=== PATIENT | male | born 1960 | race Caucasian/White ===

== ENCOUNTER 2016-08-21 11:27 | Inpatient (IN) | payer OTHER ==
[~2016-08-21] VITALS: Ht 177.8 cm; Wt 60.5 kg
--- NOTE | ~2016-08-21 | HC ---
[facility] [place] [address] CONSULTATION Name: BRENT MARTIN Room #: 511-P [facility] IN M.R.#: [id number] Admission: 08/21/16 Attend Phys: Feliz Fernandez MD Discharge: Date of : 58 Report #: [id number] THIS REPORT FOR: //name// CC: Feliz Davis NEUROBEHAVIORAL STATUS EXAM DATE OF CONSULTATION: 09/07/2016. AGE: 56. ATTENDING PHYSICIAN: Feliz Fernandez M.D. POLICY ADVISOR: Santiago Ocampo, PhD. CLINICAL PRESENTATION: The patient is a 56-year-old male admitted to the rehabilitation unit for a comprehensive inpatient rehabilitation program to improve functional mobility, activities of daily living and self-care and mental status secondary to an encephalopathy with peripheral neuropathy and a pelvic fracture. The patient has a long standing alcohol abuse disorder. He has continued to consume alcohol prior to his current admission. His past medical history includes liver failure and treatment for depression using venlafaxine and gabapentin. A complete description of his medical condition and history along with medications can be found in his medical record. Neuropsychological consultation was requested to provide assistance in the assessment of cognitive and emotional status and to provide recommendations and services. Prior to this most recent admission, he was living with his parents in their home. He fell and sustained a fracture to his pelvis, which resulted in his need for hospitalization. The patient reported that he is a high school graduate and attended [employer] However, he is an unreliable historian. 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 The patient was confused and disoriented during the interview and accuracy of historic information is uncertain. TECHNIQUES UTILIZED: Clinical interview, review of medical records, staff consultation and behavioral observation, mini mental status exam 2 brief version. EXAMINATION FINDINGS: The patient was alert and cooperative with the assessment. However, he was unable to describe the reason for his hospitalization. He reported having pain in his groin and testicles along with his lower back. The patient reports his problems to include difficulty with sleep and appetite. His performance on the MMSE 2 brief version was 9 of 16, [facility] [address] [place] [address] CONSULTATION Name: BRENT MARTIN Room #: 511-P ADM IN M.R.#: [id number] Admission: 08/21/16 Attend Phys: Feliz Fernandez MD Discharge: Date of : 58 Report #: [id number] which is extremely low. He was 3/3 for initial registration. The patient was oriented to time with a raw score 4/5. Orientation to date and orientation to place was impaired. He relied on the orientation board to identify current location. He was 0/3 for immediate recall of 3 items after a brief time delay and distraction. DIAGNOSTIC IMPRESSION: Major neurocognitive disorder (dementia), possibly due to alcohol abuse, without behavior disorder, extent to be determined, severe at this time. Intermittent delirium secondary to liver failure. RECOMMENDATIONS: The patient will require 24-hour care that includes assistance in the management of medication, nutrition and finances. Alcohol should be kept from the patient. Addictive substances should be used with caution. Decreased insight, intermittent delirium and severe neurocognitive deficits places him as a very high safety risk. Thank you very much for allowing me to provide the consultation on this patient. <ELECTRONICALLY SIGNED> By: Santiago Ocampo, PhD 09/12/16 [id number] Santiago Ocampo, PhD /nt
[~2016-08-21 11:27] MED LIST: ASPIR 8181 M1 PO; BENZONATATE200 MG PO; CYMBALTA30 MG PO; DUEXIS 800-26.1 EACH PO; DULOXETINE HCL60 MG PO; GLUCOSAMINE HC500 MG PO; IRON325 M1 PO; LACTULOSE20 GM/30 M PO; LASIX 40 MG TAB40 M2 PO; LIPITOR 20 MG T20 M1 PO; LOPERAMIDE 2 MG2 M1 PO; MUCINEX TA600 MG/TA2 PO; NATURE'S TEARS15 M1 OPHTHALMIC; PERCOCET PO; PRILOSEC 20 MG20 MG PO; ROXICODONE5 M2 PO; SPIRONOLACTONE25 MG PO; THERATRUM COMP1 EAC2 PO; TRAMADOL 50 MG50 MG PO; TRAZODONE HCL50 MG PO; TUMS PO; XIFAXAN550 M1 PO; [UNRECOGNIZED DRUG - MIXTURE] PO
[2016-08-21 18:30] VITALS: BP 125/85
[2016-08-22 05:06] VITALS: BP 114/73
[2016-08-22 05:12] LABS: MCV 90.2 fL (80.0-100.0)
[2016-08-22 05:13] LABS: HEMATOCRIT 26.1 % (42.0-52.0); HEMOGLOBIN 8.3 gm/dL (14.0-18.0); MCH 28.8 pg (26.0-34.0); MCHC 31.9 g/dL (28.0-37.0); RBC 2.89 mil/uL (4.50-6.00); RDW 19.8 % (10.5-14.5)
[2016-08-22 05:40] LABS: WBC 1.7 thou/uL (4.0-11.0)
[2016-08-22 06:06] LABS: ALBUMIN 2.3 g/dL (3.4-5.0); CALCIUM 7.7 mg/dL (8.5-10.1); CREATININE 0.7 mg/dL (0.7-1.3); DIRECT BILIRUBIN 1.1 mg/dL (<0.1-0.3); TOTAL BILIRUBIN 2.6 mg/dL (<0.1-1.0); TOTAL PROTEIN 5.4 g/dL (6.4-8.2)
[2016-08-22 08:48] VITALS: BP 113/64
[2016-08-22 16:07] VITALS: BP 117/76
[2016-08-23 03:14] VITALS: BP 112/70
[2016-08-23 05:34] LABS: MCV 88.4 fL (80.0-100.0)
[2016-08-23 05:37] LABS: HEMOGLOBIN 8.4 gm/dL (14.0-18.0); MCH 29.6 pg (26.0-34.0); MCHC 33.5 g/dL (28.0-37.0); PLATELET COUNT 103 thou/uL (150-400); RBC 2.83 mil/uL (4.50-6.00)
[2016-08-23 05:45] LABS: MANUAL DIFF YES; WBC 1.8 thou/uL (4.0-11.0)
[2016-08-23 07:25] LABS: ANISOCYTOSIS 1+; PLATELET ESTIMATE NORMAL; TOTAL CELL COUNT 100
[2016-08-23 09:14] VITALS: BP 112/71
[2016-08-23 15:30] VITALS: BP 108/74
[2016-08-24 06:35] VITALS: BP 108/69
[2016-08-24 15:39] VITALS: BP 117/78
[2016-08-25 04:00] VITALS: BP 105/70
[2016-08-25 07:20] LABS: HEMATOCRIT 26.8 % (42.0-52.0); HEMOGLOBIN 8.7 gm/dL (14.0-18.0); MCHC 32.2 g/dL (28.0-37.0); MCV 90.1 fL (80.0-100.0); PLATELET COUNT 121 thou/uL (150-400); RBC 2.98 mil/uL (4.50-6.00); RDW 20.3 % (10.5-14.5)
[2016-08-25 07:27] LABS: MANUAL DIFF YES
[2016-08-25 07:49] LABS: CALCIUM 8.1 mg/dL (8.5-10.1); CREATININE 0.7 mg/dL (0.7-1.3); MAGNESIUM 1.8 mg/dL (1.8-2.4); POTASSIUM 4.5 mmol/L (3.5-5.1)
[2016-08-25 09:24] LABS: ANISOCYTOSIS 2+; NUCLEATED RBCS 1 /100WBC; POLYCHROMASIA OCCASIONAL; TOTAL CELL COUNT 100
[2016-08-25 09:25] LABS: OVALOCYTES FEW
[2016-08-25 16:06] VITALS: BP 124/72
[2016-08-26 03:58] VITALS: BP 104/68
[2016-08-26 04:37] LABS: HEMOGLOBIN 8.9 gm/dL (14.0-18.0)
[2016-08-26 04:41] LABS: HEMATOCRIT 27.1 % (42.0-52.0); MCV 87.7 fL (80.0-100.0); PLATELET COUNT 132 thou/uL (150-400); RBC 3.08 mil/uL (4.50-6.00); RDW 19.9 % (10.5-14.5); WBC 2.6 thou/uL (4.0-11.0)
[2016-08-26 04:44] LABS: MANUAL DIFF YES
[2016-08-26 04:56] LABS: ALBUMIN 2.5 g/dL (3.4-5.0); CALCIUM 7.9 mg/dL (8.5-10.1); CREATININE 0.7 mg/dL (0.7-1.3); POTASSIUM 4.4 mmol/L (3.5-5.1); TOTAL BILIRUBIN 2.6 mg/dL (<0.1-1.0)
[2016-08-26 05:17] LABS: ABSOLUTE NEUTROPHILS 1.6 thou/uL (1.4-8.2); ANISOCYTOSIS 2+; LARGE PLATELETS FEW; POLYCHROMASIA 1+; TOTAL CELL COUNT 100
[2016-08-26 05:19] LABS: SCHISTOCYTES RARE
[2016-08-26 15:30] VITALS: BP 133/89
[2016-08-27 04:25] VITALS: BP 136/82
[2016-08-27 09:31] LABS: HEMATOCRIT 30.5 % (42.0-52.0); HEMOGLOBIN 9.9 gm/dL (14.0-18.0); MCH 28.9 pg (26.0-34.0); MCHC 32.6 g/dL (28.0-37.0); MCV 88.9 fL (80.0-100.0); PLATELET COUNT 168 thou/uL (150-400); RBC 3.44 mil/uL (4.50-6.00); WBC 2.7 thou/uL (4.0-11.0)
[2016-08-27 09:32] LABS: MANUAL DIFF YES
[2016-08-27 09:39] LABS: CALCIUM 8.6 mg/dL (8.5-10.1); CREATININE 0.9 mg/dL (0.7-1.3); POTASSIUM 4.5 mmol/L (3.5-5.1)
[2016-08-27 09:44] LABS: TOTAL BILIRUBIN 3.1 mg/dL (<0.1-1.0); TOTAL PROTEIN 6.6 g/dL (6.4-8.2)
[2016-08-27 10:02] LABS: ABSOLUTE NEUTROPHILS 1.5 thou/uL (1.4-8.2); PLATELET ESTIMATE NORMAL; TOTAL CELL COUNT 100
[2016-08-27 10:03] LABS: ANISOCYTOSIS 1+
[2016-08-27 10:04] LABS: HYPOCHROMASIA 1+; OVALOCYTES FEW; POIKILOCYTOSIS SLIGHT; SCHISTOCYTES OCCASIONAL
[2016-08-27 16:00] VITALS: BP 116/78
[2016-08-28 04:23] VITALS: BP 101/59
[2016-08-28 16:00] VITALS: BP 116/63
[2016-08-29 04:09] VITALS: BP 120/76
[2016-08-29 15:45] VITALS: BP 108/72
[2016-08-30 00:32] VITALS: BP 114/67
[2016-08-30 05:49] VITALS: BP 101/60
[2016-08-30 16:00] VITALS: BP 115/62
[2016-08-30 20:00] VITALS: BP 114/67
[2016-08-31 04:08] LABS: CALCIUM 8.2 mg/dL (8.5-10.1); CREATININE 0.7 mg/dL (0.7-1.3); POTASSIUM 4.2 mmol/L (3.5-5.1)
[2016-08-31 05:40] VITALS: BP 107/70
[2016-08-31 11:25] LABS: ALBUMIN 2.9 g/dL (3.4-5.0); DIRECT BILIRUBIN 0.9 mg/dL (<0.1-0.3); TOTAL BILIRUBIN 2.2 mg/dL (<0.1-1.0); TOTAL PROTEIN 6.4 g/dL (6.4-8.2)
[2016-08-31 16:00] VITALS: BP 110/68
[2016-09-01 04:00] VITALS: BP 109/70
[2016-09-01 16:00] VITALS: BP 115/81
[2016-09-02 05:04] LABS: HEMATOCRIT 29.5 % (42.0-52.0); HEMOGLOBIN 9.7 gm/dL (14.0-18.0); MCH 29.3 pg (26.0-34.0); MCHC 32.9 g/dL (28.0-37.0); MCV 89.1 fL (80.0-100.0); PLATELET COUNT 146 thou/uL (150-400); RBC 3.32 mil/uL (4.50-6.00); RDW 21.7 % (10.5-14.5); WBC 3.1 thou/uL (4.0-11.0)
[2016-09-02 05:12] LABS: ALBUMIN 2.8 g/dL (3.4-5.0); CALCIUM 8.4 mg/dL (8.5-10.1); CREATININE 0.9 mg/dL (0.7-1.3); MAGNESIUM 1.8 mg/dL (1.8-2.4); POTASSIUM 4.2 mmol/L (3.5-5.1); TOTAL PROTEIN 6.3 g/dL (6.4-8.2)
[2016-09-02 05:42] VITALS: BP 115/64
[2016-09-02 05:42] LABS: MANUAL DIFF YES
[2016-09-02 07:34] LABS: ANISOCYTOSIS 2+; POLYCHROMASIA OCCASIONAL; TOTAL CELL COUNT 100
[2016-09-02 16:00] VITALS: BP 153/71
[2016-09-02 16:27] VITALS: BP 115/64
[2016-09-02 19:18] VITALS: BP 125/82
[2016-09-03 04:05] VITALS: BP 118/74
[2016-09-03] MEDS ORDERED: LACTULOSE10 GM/153 PO (11:11)
[2016-09-03 16:03] VITALS: BP 114/76
[2016-09-04 03:58] VITALS: BP 107/71
[2016-09-04 06:54] LABS: ALBUMIN 2.9 g/dL (3.4-5.0); CALCIUM 8.5 mg/dL (8.5-10.1); CREATININE 0.9 mg/dL (0.7-1.3); POTASSIUM 4.3 mmol/L (3.5-5.1); TOTAL BILIRUBIN 1.8 mg/dL (<0.1-1.0); TOTAL PROTEIN 6.9 g/dL (6.4-8.2)
[2016-09-04 15:08] VITALS: BP 111/71
[2016-09-05 03:33] VITALS: BP 123/70
[2016-09-05 09:32] VITALS: BP 119/71
[2016-09-05 15:53] VITALS: BP 112/77
[2016-09-06 06:40] VITALS: BP 118/74
[2016-09-06 16:00] VITALS: BP 130/81
[2016-09-07 07:36] VITALS: BP 122/69
[2016-09-07 11:53] LABS: HEMATOCRIT 31.5 % (42.0-52.0); HEMOGLOBIN 10.3 gm/dL (14.0-18.0); MCH 29.9 pg (26.0-34.0); MCHC 32.8 g/dL (28.0-37.0); RBC 3.46 mil/uL (4.50-6.00); RDW 21.7 % (10.5-14.5); WBC 4.7 thou/uL (4.0-11.0)
[2016-09-07 12:09] LABS: CALCIUM 8.7 mg/dL (8.5-10.1); POTASSIUM 4.9 mmol/L (3.5-5.1); TOTAL BILIRUBIN 1.7 mg/dL (<0.1-1.0); TOTAL PROTEIN 6.6 g/dL (6.4-8.2)
[2016-09-07 15:30] VITALS: BP 111/66
[2016-09-08 05:37] VITALS: BP 111/75
[2016-09-08 08:00] VITALS: BP 124/70
[2016-09-08 15:30] VITALS: BP 133/65
[2016-09-09 05:26] VITALS: BP 112/82
[2016-09-09 16:01] VITALS: BP 113/71
[2016-09-09 20:15] VITALS: BP 125/76
[2016-09-10 05:59] VITALS: BP 118/64
[2016-09-10 16:00] VITALS: BP 131/90
[2016-09-11 05:24] LABS: INR 1.5; PROTIME 15.7 Seconds (9.3-11.4)
[2016-09-11 05:25] LABS: ALBUMIN 2.7 g/dL (3.4-5.0); CALCIUM 8.2 mg/dL (8.5-10.1); CREATININE 0.8 mg/dL (0.7-1.3); POTASSIUM 4.5 mmol/L (3.5-5.1); TOTAL BILIRUBIN 1.5 mg/dL (<0.1-1.0); TOTAL PROTEIN 5.8 g/dL (6.4-8.2)
[2016-09-11 06:12] VITALS: BP 127/84
[2016-09-11 08:51] LABS: HEMATOCRIT 26.5 % (42.0-52.0); HEMOGLOBIN 8.8 gm/dL (14.0-18.0); MCH 30.5 pg (26.0-34.0); MCHC 33.2 g/dL (28.0-37.0); MCV 91.8 fL (80.0-100.0); RBC 2.88 mil/uL (4.50-6.00); RDW 22.7 % (10.5-14.5); WBC 4.5 thou/uL (4.0-11.0)
[2016-09-11 15:50] VITALS: BP 116/76
[2016-09-12 05:40] VITALS: BP 107/66
[2016-09-12 08:00] VITALS: BP 115/66
[2016-09-12 17:42] VITALS: BP 117/76
[2016-09-13 06:04] VITALS: BP 108/66
[2016-09-13 15:36] VITALS: BP 119/68
[2016-09-14 05:38] VITALS: BP 110/65
[2016-09-14 12:11] LABS: CALCIUM 8.9 mg/dL (8.5-10.1); CREATININE 0.9 mg/dL (0.7-1.3); POTASSIUM 4.3 mmol/L (3.5-5.1)
[2016-09-14 15:51] VITALS: BP 116/77
[2016-09-15 03:41] VITALS: BP 124/79
[2016-09-15 08:00] VITALS: BP 106/66
[2016-09-16 03:52] VITALS: BP 121/66
[2016-09-16 06:51] LABS: HEMATOCRIT 27.1 % (42.0-52.0); HEMOGLOBIN 9.1 gm/dL (14.0-18.0); MCH 31.3 pg (26.0-34.0); MCHC 33.5 g/dL (28.0-37.0); MCV 93.5 fL (80.0-100.0); RBC 2.89 mil/uL (4.50-6.00); RDW 23.8 % (10.5-14.5)
[2016-09-16 07:03] LABS: CALCIUM 8.5 mg/dL (8.5-10.1); POTASSIUM 4.4 mmol/L (3.5-5.1)
[2016-09-16 15:54] VITALS: BP 106/67
== END 2016-09-16 17:45 | DRG 91 ==
PROVIDERS: Family Medicine; Hospitalist; Internal Medicine Endocrinology, Diabetes & Metabolism; Nurse Practitioner; Nurse Practitioner Family; Physical Medicine & Rehabilitation
DX: G92 Toxic encephalopathy (principal); E43 Unspecified severe protein-calorie malnutrition; S32.592A Other specified fracture of left pubis, initial encounter for closed fracture; D61.818 Other pancytopenia; E87.1 Hypo-osmolality and hyponatremia; Z68.1 Body mass index [BMI] 19.9 or less, adult; F01.50 Vascular dementia, unspecified severity, without behavioral disturbance, psychotic disturbance, mood disturbance, and anxiety; F10.10 Alcohol abuse, uncomplicated; G43.909 Migraine, unspecified, not intractable, without status migrainosus; K21.9 Gastro-esophageal reflux disease without esophagitis; F32.9 Major depressive disorder, single episode, unspecified; F17.220 Nicotine dependence, chewing tobacco, uncomplicated; W10.9XXA Fall (on) (from) unspecified stairs and steps, initial encounter; S63.502A Unspecified sprain of left wrist, initial encounter; M17.12 Unilateral primary osteoarthritis, left knee; G62.9 Polyneuropathy, unspecified; G89.29 Other chronic pain; K52.9 Noninfective gastroenteritis and colitis, unspecified; K72.90 Hepatic failure, unspecified without coma; E78.5 Hyperlipidemia, unspecified; R53.81 Other malaise; K80.20 Calculus of gallbladder without cholecystitis without obstruction; Z51.5 Encounter for palliative care; K74.60 Unspecified cirrhosis of liver; K90.0 Celiac disease; Z90.49 Acquired absence of other specified parts of digestive tract; Z85.828 Personal history of other malignant neoplasm of skin; Z86.73 Personal history of transient ischemic attack (TIA), and cerebral infarction without residual deficits; Y93.89 Activity, other specified; Y92.89 Other specified places as the place of occurrence of the external cause; Y99.8 Other external cause status; Z88.8 Allergy status to other drugs, medicaments and biological substances; Z71.6 Tobacco abuse counseling
CPT/HCPCS: 10112